=== PATIENT | female | born 1985 | race Caucasian/White ===

== ENCOUNTER → 2017-12-30 | Outpatient (REF) ==
[2016-09-08 16:31] VITALS: BMI 35.2
[~2017-12-30] MED LIST: AMOX-362 PO; FEXO1TAB60 PO; FEXO1TAB63 PO; IBUP800T37 PO; MULT-1085 PO; OMEG300C PO; PER PO
[2017-12-30 08:29] LABS: LDL CHOLESTEROL 97 mg/dl
== END ==
DX: Z02.9 Encounter for administrative examinations, unspecified (principal)

== ENCOUNTER → 2018-01-20 | Outpatient (CLI) | payer OTHER ==
[2016-09-08 16:31] VITALS: BMI 35.2
--- NOTE | 2018-01-20 08:58 | RADIOLOGY IMAGING REPORT ---
FACILITY: [facility] PATIENT NAME: Chiquita Beverly : 1985 MR: [id number] V: [id number] EXAM DATE: ORDERING PHYSICIAN: RYLEY OZUNA TECHNOLOGIST: Location: Patient: Chiquita Beverly : 1985 Visit/Account:[id number] Date of Sevice: 01/20/2018 PELVIC HISTORY: Irregular cycles, check IUD TECHNIQUE: Transabdominal and transvaginal ultrasound pelvis. COMPARISON: None. FINDINGS: Uterus: ; 8.6 cm length x 4.2 cm AP x 6 cm transverse. Myometrium: Unremarkable. Endometrium: The IUD appears to be in good position within the endometrial canal.. The technologist reports the string was seen in the cervix approximately 2.2 cm from the external os.; double thicknes s 6.9 mm. Cervix: Grossly negative. Ovaries: Right - 2.9 x 3.4 x 2.2 cm Left - 2.7 x 2.8 x 1.8 cm Blood flow is documented in each ovary by duplex Doppler ultrasound. Adnexa: Grossly unremarkable. Free pelvic fluid: None. IMPRESSION: IUD appears to be in good position within the endometrial canal. The technologist reports the string was seen in the cervix approximately 2.2 cm from the external os. Clinical correlation needed to de termine the the patient can locate string within the vagina. Report Dictated By: Shivani Medel MD at 01/20/2018 8:46 AM Report E-Signed By: Shivani Medel MD at 01/20/2018 8:54 AM WSN:[id number]
== END ==
LOC: US 02:48
PROVIDERS: ATTEND Physician Assistant
DX: N92.6 Irregular menstruation, unspecified (principal); Z97.5 Presence of (intrauterine) contraceptive device
CPT/HCPCS: 76856

== ENCOUNTER → 2018-02-01 | Outpatient (CLI) | payer OTHER ==
[2016-09-08 16:31] VITALS: BMI 35.2
== END ==
LOC: RESP 20:43
PROVIDERS: ATTEND Physician Assistant
DX: G47.33 Obstructive sleep apnea (adult) (pediatric) (principal); G47.36 Sleep related hypoventilation in conditions classified elsewhere; E66.9 Obesity, unspecified

== ENCOUNTER → 2019-01-04 | Outpatient (REF) ==
[2016-09-08 16:31] VITALS: BMI 35.2
[2019-01-04 09:33] LABS: LDL CHOLESTEROL 123 mg/dl
== END ==
DX: Z02.9 Encounter for administrative examinations, unspecified (principal)